=== PATIENT | female | born 1990 | race Caucasian/White ===

== ENCOUNTER 2016-10-17 14:20 | Emergency (ER) | payer OTHER ==
[2016-10-17 14:33] VITALS: BP 139/65; PULSE 63; TEMP 98.7; BMI 32.4
--- NOTE | 2016-10-17 14:33 | PDOC ---
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 The patient states the pain radiates down her L arm and back. She also endorses arm and face numbness. She also endorses associated nausea and blurry vision and pressure of her L eye. The patient states she saw her PCP who referred her to Dr. Nunez whom she made an appointment with next week. The patient also notes shes been using an IUD for the past 4.5 years without issue. Surgical Hx: Denies Social Hx: Daily ETOH use (1-2 wine or beers). She states she doesnt think she has an ETOH problem. She denies illicit drug use. The patient states she is a former smoker. 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 Family Hx: Mother has HLD. (Lauren Wilson) Past History <Lauren Wilson - Last Filed: 10/17/16 16:30> <Renzo Moreno - Last Filed: 10/17/16 17:09> - Past Medical History Allergies/Adverse Reactions: Allergies Allergy/AdvReac Type Severity Reaction Status Date / Time Penicillins Allergy Verified 10/17/16 14:24 Home Medications: Ambulatory Orders Citalopram Hydrobromide [Citalopram HBr] 40 mg PO DAILY 10/17/16 Diclofenac Sodium [Diclofenac Sodium ER] 100 mg PO DAILY #15 tab.er.24h Levonorgestrel [Mirena] 1 each IY ASDIR 10/17/16 Review of Systems - Review of Systems Able to Perform ROS?: Yes <SteveLauren - Last Filed: 10/17/16 16:30> <Renzo Moreno - Last Filed: 10/17/16 17:09> - Review of Systems Comments:: CONSTITUTIONAL: Absent: fever, chills, diaphoresis, generalized weakness, malaise, loss of appetite HEENT: +blurred vision of L eye, pressure-like sensation of L eye. Absent: rhinorrhea, nasal congestion, throat pain, throat swelling, difficulty swallowing, mouth swelling, ear pain. CARDIOVASCULAR: +chest pain Absent: syncope, palpitations, irregular heart rate, lightheadedness, peripheral edema RESPIRATORY: Absent: cough, shortness of breath, dyspnea with exertion, orthopnea, wheezing, stridor, hemoptysis GASTROINTESTINAL: +nausea Absent: abdominal pain, abdominal distension, vomiting, diarrhea, constipation, melena, hematochezia GENITOURINARY: Absent: dysuria, frequency, urgency, hesitancy, hematuria, flank pain, genital pain MUSCULOSKELETAL: Absent: myalgia, arthralgia, joint swelling SKIN: Absent: rash, itching, pallor NEUROLOGIC: +numbness of L face and L arm Absent: headache, focal weakness, dizziness, unsteady gait, seizure, mental status changes, bladder or bowel incontinence PSYCHIATRIC: Absent: anxiety, depression, suicidal or homicidal ideation, hallucinations. (Lauren Wilson) *Physical Exam <Lauren Wilson - Last Filed: 10/17/16 16:30> <Renzo Moreno Ernst - Last Filed: 10/17/16 17:09> - Vital Signs Last Vital Signs Temp Pulse Resp BP Pulse Ox 98.7 F 63 18 139/65 99 10/17/16 14:20 10/17/16 14:20 10/17/16 14:20 10/17/16 14:20 10/17/16 14:20 - Physical Exam Comments: GENERAL: Well developed, well nourished. Awake and alert. No acute distress. HEENT: Normocephalic, atraumatic. PERRLA, EOMI. No conjunctival pallor. Sclera are non- icteric. Moist mucous membranes. Oropharynx is clear. Fundoscopic exam was performed with good visualization of optic discs. Disc margins were sharp and there were good venous pulsations visualized. NECK: Supple. Full ROM. No JVD. Carotid pulses 2+ and symmetric, without bruits. No thyromegaly. No lymphadenopathy. CARDIOVASCULAR: moderate tenderness over lower sternum and costal cartilages of L chest. no crepidis or deformity of chest wall. Regular rate and rhythm. No murmurs, rubs, or gallops. Distal pulses are 2+ and symmetric. PULMONARY: No evidence of respiratory distress. Lungs clear to auscultation bilaterally. No wheezing, rales or rhonchi. ABDOMINAL: Soft. Non-tender. Non-distended. No rebound or guarding. No organomegaly. Normoactive bowel sounds. MUSCULOSKELETAL: Normal range of motion at all joints. No bony deformities or tenderness. No CVA tenderness. EXTREMITIES: No cyanosis. No clubbing. No edema. No calf tenderness. SKIN: Warm and dry. Normal capillary refill. No rashes. No jaundice. NEUROLOGICAL: Alert, awake, appropriate. Cranial nerves 2-12 intact. No deficits to light touch and temperature in face, upper extremities and lower extremities. No motor deficits in the in face, upper extremities and lower extremities. Normoreflexic in the upper and lower extremities. Normal speech. Toes are down-going bilaterally. Gait is normal without ataxia. PSYCHIATRIC: Cooperative. Good eye contact. Appropriate mood and affect. (Lauren Wilson) Heart Score/ECG Review <Lauren Wilson - Last Filed: 10/17/16 16:30> <Renzo Moreno - Last Filed: 10/17/16 17:09> #1 Sinnus bradycardia @59 bpm. (Lauren Wilson) - ADDITIONAL ORDERS Additional order review: Laboratory Results 10/17/16 14:48 Urine HCG, Qual Negative - RADIOLOGY Radiology Studies Ordered: Category Date Time Status HEAD CT WITHOUT CONTRAST [CT] Stat CT Scan 10/17/16 15:21 Completed - Medications Given in the ED: ED Medications Discontinued Medications Generic Name Dose Route Start Last Admin Trade Name Freq PRN Reason Stop Dose Admin Ibuprofen 800 mg 10/17/16 16:22 10/17/16 16:20 Motrin - PO 10/17/16 16:23 800 mg ONCE ONE Administration Medical Decision Making <Lauren Wilson - Last Filed: 10/17/16 16:30> <Renzo Moreno - Last Filed: 10/17/16 17:09> - Medical Decision Making 10/17/16 17:05 Physical exam is as described. Specifically, cardiac and neurological exams are entirely normal. 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 CT of the pain is negative. She was given the results to show to her neurologist. She has no point with Dr. Nunez early next week. EKG is normal. Primary considerations are atypical migraine or anxiety, and costochondritis. Nonsteroidal prescribed, patient is kept home from work until further neurologic consultation, instructed to return to the ER if the symptoms worsen or new symptoms develop. Fully ambulatory and in no pain or other significant distress upon discharge to follow-up as directed (Renzo Moreno) *DC/Admit/Observation/Transfer <Lauren Wilson - Last Filed: 10/17/16 16:30> - Discharge Dispostion Admit: No <Renzo Moreno - Last Filed: 10/17/16 17:09> Diagnosis at time of Disposition: Atypical migraine, Costochondritis, acute - Discharge Dispostion Disposition: HOME Condition at time of disposition: Stable - Prescriptions Prescriptions: Diclofenac Sodium [Diclofenac Sodium ER] 100 mg PO DAILY #15 tab.er.24h - Patient Instructions Printed Discharge Instructions: DI for Migraine, DI for Costochondritis Additional Instructions: Stay home from work and rest until further evaluation by neurologist as scheduled next week. Return to ER if symptoms worsen or any new symptoms develop. Medication as directed. - Post Discharge Activity Work/School Note: Back to Work - Attestations Scribe Attestion: Documentation prepared by Lauren Wilson, acting as emergency medicine medical director for Renzo Mcarthur MD/. (Lauren Wilson)
[2016-10-17] MEDS ORDERED: IBUPROFEN 400 MG TABLET (FP) PO ONE ×2 (16:22→16:23)
--- NOTE | 2016-10-18 16:27 | EKG ---
Test Reason : Blood Pressure : / mmHG Vent. Rate : 059 BPM Atrial Rate : 059 BPM P-R Int : 136 ms QRS Dur : 076 ms QT Int : 404 ms P-R-T Axes : 069 055 035 degrees QTc Int : 399 ms SINUS BRADYCARDIA OTHERWISE NORMAL ECG NO PREVIOUS ECGS AVAILABLE Confirmed by ARLEEN ALONZO MD ([id number]) on 10/18/2016 4:27:02 PM Referred By: MELISSA HUDSON Confirmed By:ARLEEN ALONZO MD
== END 2016-10-17 16:30 | disposition home or self-care (01) ==
LOC: FER 14:20
DX: G43.909 Migraine, unspecified, not intractable, without status migrainosus (principal); M94.0 Chondrocostal junction syndrome [Tietze]; F32.9 Major depressive disorder, single episode, unspecified; H35.52 Pigmentary retinal dystrophy
CPT/HCPCS: 70450-TC; 84703; 93005; 99284-25